=== PATIENT | female | born 1945 | race Caucasian/White ===

== ENCOUNTER 2020-03-03 12:28 | Emergency (ER) | payer OTHER, SELFPAY ==
--- NOTE | ~2020-03-03 | XR_ITS ---
EXAMINATION: XR chest 1V portable DATE: 03/03/2020 13:05 INDICATION: Shortness of breath. TECHNIQUE: A single frontal view of the chest was obtained. COMPARISON: None. FINDINGS: There is a 2 cm nodule in left lower lung zone overlying the heart. No pleural effusion or pneumothorax. The heart size is normal. IMPRESSION: 1. 2 cm nodule in left lower lung zone suspicious for primary bronchogenic carcinoma. Noncontrast marko st CT is recommended. I called this result to Maximiliano Watters on 03/03/20 at 13:13. Reviewed, dictated and finalized at location A. IMPRESSION: 1. 2 cm nodule in left lower lung zone suspicious for primary bronchogenic carc inoma. Noncontrast chest CT is recommended. I called this result to Maximiliano gomez 03/03/20 at 13:13.
--- NOTE | ~2020-03-03 | CT_ITS ---
EXAMINATION: CT chest wo con EXAM DATE: 03/03/2020 13:52 INDICATION: Shortness of breath. Left lower lung zone nodule, abnormal chest x-ray. TECHNIQUE: Spiral CT of the chest without contrast. Axial, coronal and sagittal images were reviewe d. Coronal maximum intensity pixel images of chest reviewed. The dose-length product (DLP) for this examination was 285.11 mGy-cm. The exposure was tailored according to patient size (auto mA exposur e control), and iterative reconstruction (ASIR) was used as additional dose reduction technique. Shannan elation is made to chest x-ray earlier same day. FINDINGS: There is no pulmonary nodule. The retrocardiac abnormality suspected on x-ray was probably summation shadows. There are no pleural or pericardial effusions. Tracheobronchial tree is patent . There is no mediastinal, hilar or axillary lymphadenopathy. There is no pneumothorax. Heart n ormal in size. There is mild coronary arterial calcification, arterial sclerosis. Upper abdomen is unremarkable. There is mild thoracic spondylosis without osteoblastic or osteolytic lesions identi fied. IMPRESSION: 1. No suspicious cardiopulmonary findings. Reviewed, dictated and finalized at location B.
[2020-03-03 12:33] VITALS: BP 155/113; PULSE 72; RESP 18; TEMP 36.6; O2SAT 97
--- NOTE | 2020-03-03 12:48 | ECG_ITS ---
Measurements Intervals [place] Rate: 72 P: 48 NC: 160 QRS: -6 QRSD: 85 T: 32 QT: 388 QTc: 425 Interpretive Statements SINUS RHYTHM RSR' IN V1 OR V2, CONSIDER RIGHT VENTRICULAR HYPERTROPHY OR RIGHT VCD BORDERLINE ST-T WAVE ABNORMALITY- DIFFUSE LEADS BASELINE WANDER- AVR, V3 BORDERLINE ECG Electronically Signed On 03-03-2020 13:44:35 CDT by Mu Low D.O.
[2020-03-03 13:02] LABS: Basophils Percent Auto 0.5 % (0.2-1.2); Eosinophils Absolute Auto 0.1 K/mm3 (0-0.3); Eosinophils Percent Auto 0.9 % (0-4.4); Hematocrit 43.3 % (37.0-47.0); Hemoglobin 14.3 g/dL (12.0-15.0); Immature Granulocyte Absolute 0.01 K/mm3 (0.00-0.031); Immature Granulocyte Percent A 0.2 % (0-0.5); Lymphocytes Absolute Auto 1.18 K/mm3 (0.9-3.2); Lymphocytes Percent Auto 18.2 % (18.3-44.2); Mean Corpuscular Hemoglobin 28.4 pg (26-34); Mean Corpuscular Volume 86.1 fl (80-100); Mean Platelet Volume 10.8 fl (7.4-10.4); Monocytes Absolute Auto 0.3 K/mm3 (0.1-0.6); Monocytes Percent Auto 4.8 % (2.6-8.5); Neutrophils Absolute Auto 4.9 K/mm3 (1.3-6.7); Neutrophils Percent Auto 75.4 % (45.5-73.1); Platelet Count Result 231 k/mm3 (150-375); Red Blood Count 5.03 M/mm3 (4.2-5.4); Red Cell Distribution Width 12.9 % (11.5-14.5); White Blood Count 6.5 K/mm3 (4.5-10.0)
[2020-03-03 13:11] LABS: Prothrombin Time 12.4 Seconds (11.1-14.7)
[2020-03-03 13:12] LABS: Partial Thromboplastin Time 26.7 SECONDS (22.3-36.8)
[2020-03-03 13:15] LABS: D Dimer 0.33 ug/mL (<0.48)
[2020-03-03 13:16] LABS: Alanine Aminotransferase 26 U/L (4-35); Albumin Level 4.9 g/dL (3.5-5.1); Alkaline Phosphatase 69 U/L (38-126); Aspartate Amino Transferase 34 U/L (14-36); Bilirubin,Total 0.8 mg/dL (0.2-1.3); Blood Urea Nitrogen 9 mg/dL (7-17); Calcium 9.3 mg/dL (8.4-10.2); Carbon Dioxide 25 mmol/L (22-30); Chloride 101 mmol/L (98-107); Estimated CRCL calculation 51 ml/min; Estimated Glomerular Filt Rate > 60; Glucose 106 mg/dL (65-105); Potassium 3.6 mmol/L (3.4-5.0); Sodium 138 mmol/L (137-145)
[2020-03-03 13:18] VITALS: BP 165/97; PULSE 62; RESP 14; O2SAT 97
[2020-03-03 13:27] LABS: NT Pro B Type Natriuretic Pept 135 PG/ML (5-100); Troponin I < 0.012 ng/mL (0.000-0.034)
--- NOTE | 2020-03-03 14:08 | ED.GENADULT ---
HPI - General Adult General Chief complaint: Shortness of Breath/Dyspnea <Maximiliano Watters PA-C - Last Filed: 03/03/20 16:25> Stated complaint: breathing problems, high blood pressure <Maximiliano Watters PA-C - Last Filed: 03/03/20 16:25> Time Seen by Provider: 03/03/20 12:42 <Maximiliano Watters PA-C - Last Filed: 03/03/20 16:25> Source: patient, family and other <Maximiliano Watters PA-C - Last Filed: 03/03/20 16:25> Mode of arrival: ambulatory <Maximiliano Watters PA-C - Last Filed: 03/03/20 16:25> Limitations: no limitations <Maximiliano Watters PA-C - Last Filed: 03/03/20 16:25> History of Present Illness HPI narrative: Patient is a 74-year-old female who presents with roughly 1 week duration of feeling like she cannot get a deep breath patient know she has had some rhinorrhea but denies any URI symptoms or chest pain. Patient notes history of hypertension on arrival denies any pain symptoms are made worse with activity. <Maximiliano Watters PA-C - Last Filed: 03/03/20 16:25> Related Data Allergies/adverse reactions: Allergies Allergy/AdvReac Type Severity Reaction Status Date / Time codeine Allergy Nausea and Verified 03/03/20 12:42 Vomiting <Maximiliano Watters PA-C - Last Filed: 03/03/20 16:25> Review of Systems Review of Systems: All systems reviewed & are unremarkable except as noted in HPI and below <Maximiliano Watters PA-C - Last Filed: 03/03/20 16:25> PMFSH Past Medical History Medical History: Medical History (Updated 03/03/20 @ 16:20 by Maximiliano Watters PA-C) Hypertension <Maximiliano Watters PA-C - Last Filed: 03/03/20 16:25> Social History Social History: Social History (Updated 03/03/20 @ 14:10 by Maximiliano Watters PA-C) Smoking status: Never smoker Gender identity (if verbalized by the patient): Female <Maximiliano Watters PA-C - Last Filed: 03/03/20 16:25> Exam Narrative: Exam Narrative: GENERAL: Well-appearing, well-nourished, and in no acute distress. HEAD: Normocephalic, atraumatic. EYES: PERRLA and EOMI. ENT: Nares clear, no rhinorrhea or epistaxis. Mucous membranes moist. Oropharynx without tonsillar hypertrophy exudate or other lesions. NECK: Supple. No adenopathy or masses. CHEST: Clear to auscultation. No respiratory distress. No wheezes rales or rhonchi HEART: Regular rate and rhythm. No murmur heard. Normal peripheral pulses. ABDOMEN: Soft, nontender, nondistended EXTREMITIES: Normal range of motion. No edema. SKIN: Warm, dry, no rash. NEURO: No focal deficits. Alert and oriented x3. Cranial nerves II through XII grossly intact PSYCH: Normal mood and affect. <JASON Oleary Last Filed: 03/03/20 16:25> Course Course Emergency Course: Patient in the room in no distress aware of case findings treatment plan and diagnosis <JASON Oleary Filed: 03/03/20 16:25> Vital Signs Vital signs: Vital Signs Temperature 97.8 F 03/03/20 12:33 Pulse Rate 72 03/03/20 12:33 Respiratory Rate 18 03/03/20 12:33 Blood Pressure 155/113 H 03/03/20 12:33 Pulse Oximetry 97 03/03/20 12:33 Temperature 97.8 F 03/03/20 12:33 Pulse Rate 92 03/03/20 14:32 Respiratory Rate 16 03/03/20 14:32 Blood Pressure 147/78 H 03/03/20 14:32 Pulse Oximetry 100 03/03/20 14:32 <JASON Oleary Last Filed: 03/03/20 16:25> Vital Signs Temperature 97.8 F 03/03/20 12:33 Pulse Rate 72 03/03/20 12:33 Respiratory Rate 18 03/03/20 12:33 Blood Pressure 155/113 H 03/03/20 12:33 Pulse Oximetry 97 03/03/20 12:33 Temperature 97.8 F 03/03/20 12:33 Pulse Rate 92 03/03/20 14:32 Respiratory Rate 16 03/03/20 14:32 Blood Pressure 147/78 H 03/03/20 14:32 Pulse Oximetry 100 03/03/20 14:32 <Marilu Garcia MD - Last Filed: 03/03/20 16:27> Medical Decision Making MDM Narrative Medical decision making narrative: Paitents EKGs and labs
[2020-03-03 14:32] VITALS: BP 147/78; PULSE 92; RESP 16; O2SAT 100
[2020-03-03 16:21] LABS: Troponin I < 0.012 ng/mL (0.000-0.034)
[2020-03-03 17:06] VITALS: BP 138/75; PULSE 85; RESP 18; O2SAT 100
== END 2020-03-03 17:07 | disposition home or self-care (01) ==
PROVIDERS: Emergency Medicine Emergency Medical Services; Emergency Provider General Practice; PCP Family Medicine
DX: R06.00 Dyspnea, unspecified (principal); I10 Essential (primary) hypertension; R94.31 Abnormal electrocardiogram [ECG] [EKG]; R91.1 Solitary pulmonary nodule
CPT/HCPCS: 36415; 71045; 71250; 80053; 83880; 84484; 85025; 85380; 85610; 85730; 87804; 93005; 99284